=== PATIENT | male | born 1945 | race Caucasian/White ===

== ENCOUNTER 2020-09-20 11:42 | Emergency (ER) | payer MEDICARE, OTHER ==
[~2020-09-20 11:42] MED LIST: ACETAMINOPHEN325 MG PO; CERTAGEN1 EACH PO; FEOSOL325 MG PO; IBUPROFEN800 MG PO; NORCO 5-325 TA1 EACH PO; ROBAXIN750 MG PO; SENOKOT8.6 MG PO; XARELTO10 MG PO
[2020-09-20 13:51] LABS: BASOPHIL 0.3 % (0-2); EOSINOPHIL 0.9 % (0-7); HCT 41.8 % (42.0-52.0); HGB 13.4 g/dl (13.2-18.0); LYMPHOCYTE 14.8 % (15-48); MCH 31.1 pg (25.0-31.0); MCHC 32.1 g/dL (32.0-36.0); MONOCYTE 8.3 % (0-12); MPV 9.4 fL (6.0-9.5); NEUTROPHIL 75.3 % (41-80); NRBC 0; PLT 181 K/uL (150-400); RBC 4.31 M/uL (4.70-6.00); RDW 12.7 % (11.5-14.0); WBC 9.5 K/uL (4.0-10.5)
[2020-09-20 14:05] LABS: INR 1.14 (0.9-1.2); PROTHROMBIN TIME 13.9 SECONDS (11.4-13.6); PTT 24.7 SECONDS (22.2-34.7)
[2020-09-20 14:10] LABS: BUN/CREAT RATIO (CALC) 25.6 RATIO; CREATININE 0.82 mg/dL (0.67-1.17); POTASSIUM 3.8 mmol/L (3.5-5.1)
== END 2020-09-20 14:00 | disposition other institution (70) ==
LOC: FER 11:42
PROVIDERS: Emergency Medicine
DX: S06.340A Traumatic hemorrhage of right cerebrum without loss of consciousness, initial encounter (principal); S43.101A Unspecified dislocation of right acromioclavicular joint, initial encounter; S00.83XA Contusion of other part of head, initial encounter; G20 Parkinson's disease; Z79.899 Other long term (current) drug therapy; W10.9XXA Fall (on) (from) unspecified stairs and steps, initial encounter; Y92.009 Unspecified place in unspecified non-institutional (private) residence as the place of occurrence of the external cause; Z20.822 Contact with and (suspected) exposure to COVID-19
CPT/HCPCS: 36415; 70450; 72125; 73030; 80048; 85025; 85610; 85730; U0002